=== PATIENT | male | born 1930 | race Caucasian/White ===

== ENCOUNTER 2017-05-11 10:07 | Inpatient (IN) | payer MEDICARE ==
[2017-05-11] MEDS ORDERED: DUONEB 0.5-3 MG/3 ml Neb IH ONE ×2 (10:57)
[2017-05-11] MEDS ORDERED: Sodium Chloride 0.9% 1000 ML 1,000 ML IV SCH (11:00)
[2017-05-11 11:06] LABS: Eosinophil % 0.1 % (0.00-5.0); Mean Cell Volume 91.1 fl (78-100); Mean Corpuscular Hemoglobin 28.8 pg (26-32); Mean Platelet Volume 13.3 fl (6-9.5); Monocytes % 14.1 % (0.0-12.0); Platelet Count 88 K/mm3 (150-450); Red Blood Count 3.92 M/mm3 (4.1-5.6)
--- NOTE | 2017-05-11 11:18 | XRAY ---
Indication: Cough and weakness. Comparison: February 29, 2016. Portable chest underinflated today accentuating the cardiopulmonary structures with stable diffuse bilateral fibrosis/scarring. Query left base infiltrate versus atelectasis. Heart is not enlarged. Bony thorax intact again with mild osteopenia and degenerative changes. Impression: 1. Underinflated chest again with pulmonary fibrosis/scarring. 2. Query new left base infiltrate/atelectasis. Correlate clinically.
[2017-05-11 11:19] LABS: ALBUMIN 3.4 g/dL (3.4-5.0); ANION GAP 17.6 MEQ/L (5-15); BILIRUBIN,TOTAL 1.2 mg/dL (0.2-1.0); Carbon Dioxide 22.3 mEq/L (21-32); MAGNESIUM 1.9 mg/dL (1.8-2.4); Potassium 4.6 mEq/L (3.5-5.1); Total Protein 7.9 gm/dL (6.4-8.2); White Blood Count 63.4 K/mm3 (4.0-10.5)
[2017-05-11] MEDS ORDERED: ROCEPHIN 1 Gm-D5w 50 ml Bag** 1 G/50 ML IVPB IV ONE ×2 (11:25→11:32)
[2017-05-11] MEDS ORDERED: Zithromax 500 MG/ 250 ML NaCl Premix 500 MG/250 ML IVPB IV STA (11:26)
--- NOTE | 2017-05-11 11:34 | ERPHSYRPT ---
- History of Present Illness Time Seen by Provider: 05/11/17 10:30 Source: patient, family Exam Limitations: clinical condition Patient Subjective Stated Complaint: pt here for weakness for 2 weeks getting worse, with cough,productive green, pain to middle left side of back no injury Triage Nursing Assessment: pt alert, arrived per wc, resp easy, chest clear, congested cough, no edema. no fever Physician History: PATIENT WITH A HISTORY OF CHRONIC LYMPHOCYTIC LEUKEMIA, CORONARY ARTERY DISEASE , COMPLAINS OF PRODUCTIVE COUGH GREEN SPUTUM ASSOCIATED WITH GENERALIZED WEAKNESS, AND EXERTIONAL DYSPNEA. DENIES FEVER OR CHILLS. Timing/Duration: week(s) Cough Quality/Degree: productive cough, sputum Possible Cause: occasional episodes Modifying Factors: Improves With: activity, coughing Associated Symptoms: shortness of breath International travel in last 2 weeks: No Allergies/Adverse Reactions: Penicillins Allergy (Verified 05/11/17 10:25) Home Medications: Aspirin 81 mg PO DAILY 02/29/16 [History] Polyethylene Glycol 3350 17 gm PO DAILY 02/29/16 [History] Sennosides/Docusate Sodium [Docusate Sodium-Senna Tablet] 1 each PO BID [History] Tamsulosin HCl 0.4 mg PO DAILY 02/29/16 [History] Hx Tetanus, Diphtheria Vaccination/Date Given: No Hx Influenza Vaccination/Date Given: Yes Hx Pneumococcal Vaccination/Date Given: No Immunizations Up to Date: Yes - Review of Systems Constitutional: Weakness, No Fever, No Chills Eyes: No Symptoms Ears, Nose, & Throat: No Symptoms Respiratory: Cough, Dyspnea on Exertion (MCKEE), No Dyspnea Cardiac: No Symptoms, No Chest Pain, No Edema, No Syncope Abdominal/Gastrointestinal: No Symptoms, No Abdominal Pain, No Nausea, No Vomiting, No Diarrhea Genitourinary Symptoms: No Dysuria Musculoskeletal: No Symptoms, No Back Pain, No Neck Pain Skin: No Symptoms, No Rash Neurological: No Dizziness, No Focal Weakness, No Sensory Changes Psychological: No Symptoms Endocrine: No Symptoms All Other Systems: Reviewed and Negative - Past Medical History Pertinent Past Medical History: Yes Neurological History: No Pertinent History ENT History: No Pertinent History Cardiac History: Coronary Artery Disease Respiratory History: No Pertinent History Endocrine Medical History: No Pertinent History Musculoskeletal History: No Pertinent History GI Medical History: No Pertinent History History: No Pertinent History Psycho-Social History: No Pertinent History Male Reproductive Disorders: Prostate Problems Other Medical History: CLL - Past Surgical History Past Surgical History: Yes Neuro Surgical History: No Pertinent History Cardiac: Cardiac Catheterization, Cardiac Stent Respiratory: No Pertinent History Gastrointestinal: No Pertinent History, Hernia Repair, Other Genitourinary: No Pertinent History Musculoskeletal: No Pertinent History Male Surgical History: No Pertinent History Other Surgical History: abdominal aneurysm repair - Social History Smoking Status: Former smoker Exposure to second hand smoke: Yes Drug Use: none Patient Lives Alone: No - Nursing Vital Signs Nursing Vital Signs: Initial Vital Signs Temperature Source Oral Pulse Rate 83 Respiratory Rate 16 Blood Pressure [] 106/39 Pain Intensity 0 - Physical Exam General Appearance: no apparent distress, alert Eye Exam: PERRL/EOMI, eyes nml inspection Ears, Nose, Throat Exam: normal ENT inspection, TMs normal, pharynx normal, moist mucous membranes Neck Exam: normal inspection, non-tender, supple, full range of motion Respiratory Exam: diminished breath sounds, other (THERE IS LEFT LOWER HEMITHORAX INSPIRATORY CRACKLES, NO WHEEZES), No respiratory distress Cardiovascular Exam: regular rate/rhythm, normal heart sounds Gastrointestinal/Abdomen Exam: soft, normal bowel sounds, No tenderness Back Exam: normal inspection, No CVA tenderness, No vertebral tenderness Extremity Exam: normal inspection, normal range of motion Neurologic Exam: alert, oriented x 3, cooperative, normal mood/affect, sensation nml, No motor deficits Skin Exam: normal color, warm, dry, No rash Lymphatic Exam: No adenopathy SpO2 Interpretation: normal SpO2: 96 Oxygen Delivery: Nasal Cannula - Course EKG Interpreted by Me: RATE, Sinus Rhythm, Non-specific ST Changes (OCCASIONAL PAC'S) - Radiology Exams Chest X-ray Interpretation: Discussed w/ radiologist (THERE IS DIFFUSE PULMONARY FIBROSIS/SCARRING, NEW LEFT BASE INFILTRATE/ATELECTASIS) Ordered Tests: Active Orders 24 hr Category Date Time Status Up With Assistance ROUTINE Activity 05/11/17 11:57 Ordered Admission/Status Order ROUTINE Care 05/11/17 11:57 Ordered Shop Repairer STAT Care 05/11/17 10:49 Active Code Status Order ROUTINE Care 05/11/17 11:57 Ordered EKG-ER Only STAT Care 05/11/17 10:49 Active IV Care Q6H Care 05/11/17 11:57 Ordered IV Insertion STAT Care 05/11/17 10:49 Active Intake and Output Q12H Care 05/11/17 11:57 Ordered Oxygen-ED Only NASAL CANNULA 2 lpm Care 05/11/17 10:49 Active Elli Salamanca ROUTINE Care 05/11/17 11:57 Ordered Telemetry ROUTINE Care 05/11/17 11:57 Ordered Vital Signs Q4H Care 05/11/17 11:57 Ordered Weight,Daily 0600 Care 05/11/17 11:57 Ordered Regular Diet Diet 05/11/17 Dinner Ordered CHEST 1 VIEW (PORTABLE) Stat Exams 05/11/17 10:49 Completed BLOOD CULTURE Stat Lab 05/11/17 11:05 Received CBC W DIFF Stat Lab 05/11/17 10:40 Completed CMP Stat Lab 05/11/17 10:40 Completed MAGNESIUM Stat Lab 05/11/17 10:40 Completed Manual Differential NC Stat Lab 05/11/17 10:40 Completed TROPONIN Q3H Lab 05/11/17 11:00 Completed TROPONIN Q3H Lab 05/11/17 14:00 Ordered TROPONIN Q3H Lab 05/11/17 17:00 Ordered TROPONIN Q3H Lab 05/11/17 20:00 Ordered TROPONIN Q3H Lab 05/11/17 23:00 Ordered UA W/RFX UR CULTURE Stat Lab 05/11/17 10:49 Ordered Oxygen NASAL CANNULA 2 lpm RT 05/11/17 11:57 Ordered Pulse Oximetry CONTINUOUS RT 05/11/17 11:59 Ordered Respiratory Nebulizer STAT RT 05/11/17 10:58 Completed Transfer Order Routine Transfer 05/11/17 11:57 Ordered Medication Summary Generic Name Dose Route Start Last Admin Trade Name Freq PRN Reason Stop Dose Admin Sodium Chloride 1,000 mls @ 50 mls/hr 05/11/17 11:00 05/11/17 11:12 Sodium Chloride 0.9% 1000 Ml IV 06/10/17 10:59 100 mls/hr .Q20H [place] Administration Azithromycin 500 mg in 250 mls @ 250 mls/hr 05/11/17 11:26 Zithromax 500 Mg/ 250 Ml Nacl Premix IV 05/11/17 12:25 STAT STA Discontinued Medications Generic Name Dose Route Start Last Admin Trade Name Freq PRN Reason Stop Dose Admin Albuterol/Ipratropium 3 ml 05/11/17 10:57 05/11/17 10:59 Duoneb 0.5-3 Mg/3 Ml Neb IH 07/13/17 10:58 3 ml STAT ONE Administration Albuterol/Ipratropium Confirm 05/11/17 10:57 Duoneb 0.5-3 Mg/3 Ml Neb Administered 05/11/17 10:58 Dose 3 ml IH .STK-MED ONE Ceftriaxone Sodium/Dextrose 1 g in 50 mls @ 100 mls/hr 05/11/17 11:25 11:34 Rocephin 1 Gm-D5w 50 Ml Bag IV 05/11/17 11:54 100 mls/hr STAT ONE Administration Ceftriaxone Sodium/Dextrose Confirm 05/11/17 11:32 Rocephin 1 Gm-D5w 50 Ml Bag Administered 05/11/17 11:33 Dose 1 g in 50 mls @ ud IV .STK-MED ONE Lab/Rad Data: Laboratory Result Diagrams 05/11/17 10:40 05/11/17 10:40 Laboratory Results 05/11/17 05/11/17 05/11/17 Range/Units 11:00 10:40 10:40 WBC 63.4 H* (4.0-10.5) K/mm3 RBC 3.92 L (4.1-5.6) M/mm3 Hgb 11.3 L (12.5-18.0) gm/dl Hct 35.7 L (42-50) % MCV 91.1 (78-100) fl MCH 28.8 (26-32) pg MCHC 31.7 L (32-36) g/dl RDW 15.0 H (11.5-14.0) % Plt Count 88 L (150-450) K/mm3 MPV 13.3 H (6-9.5) fl Lymphocytes % 62.0 H (24.0-44.0) % Monocytes % 14.1 H (0.0-12.0) % Eosinophils % 0.1 (0.00-5.0) % Segmented Neutrophils 19 L (36.-66.) % Band Neutrophils 1 (0.0-2.0) % Lymphocytes (Manual) 71 H (24-44) % Monocytes (Manual) 8 (0.0-12.0) % Eosinophils (Manual) 1 (0.00-3.0) % Differential Comment ABNORMAL Platelet Estimate DECREASED (NORMAL) Poikilocytosis 1+ Anisocytosis 1+ Sodium 143 (136-145) mEq/L Potassium 4.6 (3.5-5.1) mEq/L Chloride 108 H (98-107) mEq/L Carbon Dioxide 22.3 (21-32) mEq/L Anion Gap 17.6 H (5-15) MEQ/L BUN 49 H (9-20) mg/dL Creatinine 2.64 H (0.55-1.30) mg/dl Estimated GFR 24 ML/MIN Glucose 114 H (70-110) MG/DL Calcium 9.4 (8.5-10.1) mg/dL Magnesium 1.9 (1.8-2.4) mg/dL Total Bilirubin 1.20 H (0.2-1.0) mg/dL AST 16 (15-37) U/L ALT 14 (12-78) U/L Alkaline Phosphatase 63 (46-116) U/L Troponin I < 0.017 (0.000-0.056) ng/ml Serum Total Protein 7.9 (6.4-8.2) gm/dL Albumin 3.4 (3.4-5.0) g/dL - Progress Progress Note: 05/11/17 11:32 PATIENT GIVEN DUO NEB AEROSOL TX, IV NORMAL SALINE 100ML/HR, AFTER 2 SETS OF BLOOD CULTURES, ROCEPHIN 1GM, ZITHROMAX 500MG IVPB Blood Culture(s) Obtained: Yes Antibiotics given: Yes (ROCEPHIN 1GM, ROCEPHIN 500MG IVPB) Discussed with Dr.: Shen (DISCUSSED WITH DR SHEN AT 1155 FOR ADMISSION) - Departure Time of Disposition: 12:03 Departure Disposition: In-patient Admission Clinical Impression: PNEUMONIA, Generalized weakness Condition: Stable Critical Care Time: No
[2017-05-11 12:00] LABS: BAND 1 % (0.0-2.0); Eosinophil 1 % (0.00-3.0); Total Cells Counted 100
[2017-05-11] MEDS ORDERED: TYLENOL 325 MG PO PRN (12:00)
[2017-05-11 12:01] LABS: ANISOCYTOSIS 1+; Platelet Estimate DECREASED (NORMAL); Poikilocytosis 1+
[2017-05-11] MEDS ORDERED: Xopenex 1.25 MG/0.5 ML UD NEBULE IH PRN (12:01)
[2017-05-11] MEDS ORDERED: Zithromax 500 MG/ 250 ML NaCl Premix 500 MG/250 ML IVPB IV ONE (12:06)
[2017-05-11] MEDS: DUONEB 0.5-3 MG/3 ml Neb IH SCH ×3 (14:21→23:45)
[2017-05-11 16:38] LABS: ADD URINE CULTURE? YES (NO); Bilirubin NEGATIVE (NEGATIVE); Blood 50 Ery/ul (0-5); COMPLETE URINE MICROSCOPIC? YES; Collection Type VOID; Glucose NEGATIVE (NEGATIVE); Leukocyte Esterase TRACE (NEGATIVE)
[2017-05-11 16:47] LABS: Bacteria FEW /HPF (NEGATIVE); Mucus SLIGHT /HPF (NEGATIVE)
[2017-05-12] MEDS: Zofran 4 MG/2 ML VIAL IV PRN ×2 (02:07→06:13)
[2017-05-12] MEDS ORDERED: TORAdol 30 mg Injection IV ONE (02:10)
[2017-05-12] MEDS: Sodium Chloride 0.9% 1000 ML 1,000 ML IV SCH ×3 (02:14→16:35)
[2017-05-12] MEDS: DUONEB 0.5-3 MG/3 ml Neb IH SCH ×3 (07:00→11:37)
[2017-05-12] MEDS ORDERED: MAALOX ES 30 ML UNIT DOSE PO PRN (07:14)
[2017-05-12 07:40] LABS: Mean Cell Volume 90.6 fl (78-100); Platelet Count 80 K/mm3 (150-450); Red Blood Count 3.29 M/mm3 (4.1-5.6); Red Cell Distribution Width 14.9 % (11.5-14.0)
--- NOTE | 2017-05-12 07:43 | HP ---
CHIEF COMPLAINT: Cough and shortness of breath. HISTORY OF PRESENT ILLNESS: The patient is an 87 year-old white male patient who reports that over the past three days she has been getting worse with productive cough and having no appetite and not taking much in. The patient has known history of chronic lymphocytic leukemia (CLL). He had been seeing Dr. Frederick after Dr. Flood had retired from the [facility] but he has not seen him in the last year or better. He was also seeing Dr. Dakota Trotter who retired last year and has not seen a physician for primary care since that time either. PAST MEDICAL/SURGICAL HISTORY: Otherwise significant for coronary artery disease with stent placement. He had hernia repairs performed. He is a nonsmoker, nondrinker, living at home with his . HOME MEDICATIONS: Docusate sodium, Tamsulosin 0.4 mg. He is on no medications otherwise. ALLERGIES: PENICILLIN. PHYSICAL EXAMINATION: Revealed an elderly white male patient in no obvious distress presently. His vital signs on admission showed a pulse 83, respiratory rate 16, blood pressure 106/39. O2 saturation 96% on room air. HEENT: Normocephalic, atraumatic. Pupils equal round reactive to light. Extraocular movements intact. Oropharynx is pink and moist. NECK: Supple without lymphadenopathy, thyromegaly or JVD. CHEST: Faint rales. HEART: Irregular rate and rhythm but the rate is controlled. ABDOMEN: Soft, nontender, nondistended without hepatosplenomegaly or masses. EXTREMITIES: Without clubbing, cyanosis or edema. NEUROLOGIC: The patient is alert and oriented x3 with no focal deficits noted. LAB DATA AND TESTS: Revealed troponin 0.021. Nonfasting sugar 114, BUN 49, creatinine 2.64. His electrolytes were normal. Bilirubin 1.20. Liver enzymes were normal. The second troponin was less than 0.017. His white blood cell count 63,400, hemoglobin 11.3, PLT count 88,000. His chest x-ray showed under inflated chest with pulmonary fibrosis and scarring possible new left basilar atelectasis or infiltrate is noted. He did have tracing on EKG telemetry that showed what appears to be an underlying sinus rhythm with atrial premature contractions. He has left axis deviation on EKG with somewhat poor progression of the R-wave across the precordial lead. ASSESSMENT: A patient with exacerbation of chronic obstructive pulmonary disease and possible pneumonia. He has been admitted for IV antibiotics of Rocephin and Zithromax. He is receiving gentle hydration for his renal insufficiency. His CLL will be addressed as an outpatient with Dr. Frederick.
[2017-05-12 07:44] LABS: Mean Corpuscular Hemoglobin 28.5 pg (26-32); White Blood Count 44.9 K/mm3 (4.0-10.5)
[2017-05-12] MEDS: PROTONIX 40 MG IV IV SCH (07:57)
[2017-05-12 08:02] LABS: ATYPICAL LYMPHS 1 %; BAND 1 % (0.0-2.0); Total Cells Counted 100
[2017-05-12 08:03] LABS: Platelet Estimate DECREASED (NORMAL)
[2017-05-12 08:06] LABS: ALBUMIN 2.9 g/dL (3.4-5.0); ANION GAP 16.5 MEQ/L (5-15); BILIRUBIN,TOTAL 1.6 mg/dL (0.2-1.0); Carbon Dioxide 21.4 mEq/L (21-32); Potassium 3.9 mEq/L (3.5-5.1); Total Protein 6.2 gm/dL (6.4-8.2)
[2017-05-12 08:16] LABS: ANISOCYTOSIS RARE; Poikilocytosis RARE
[2017-05-12] MEDS ORDERED: PARACASEI B LACTIS PO SCH (10:00)
[2017-05-12] MEDS ORDERED: ACIDOPH PO SCH (10:00)
[2017-05-12] MEDS: ROCEPHIN 1 Gm-D5w 50 ml Bag** 1 G/50 ML IVPB IV SCH (10:01)
[2017-05-12] MEDS: Senokot-S Tablet PO SCH (10:01)
[2017-05-12] MEDS: Acidophilus TABLET PO SCH (10:01)
[2017-05-12] MEDS: Flomax 0.4 MG PO SCH (10:01)
[2017-05-12] MEDS ORDERED: DUONEB 0.5-3 MG/3 ml Neb IH PRN (11:41)
[2017-05-12] MEDS: Zithromax 500 MG/ 250 ML NaCl Premix 500 MG/250 ML IVPB IV SCH (12:24)
[2017-05-13] MEDS: Sodium Chloride 0.9% 1000 ML 1,000 ML IV SCH ×3 (00:46→19:24)
[2017-05-13 06:05] LABS: Mean Platelet Volume 12.9 fl (6-9.5); Platelet Count 82 K/mm3 (150-450); Red Cell Distribution Width 14.9 % (11.5-14.0)
[2017-05-13 06:45] LABS: ALBUMIN 2.6 g/dL (3.4-5.0); ANION GAP 14.4 MEQ/L (5-15); BILIRUBIN,TOTAL 0.6 mg/dL (0.2-1.0); Carbon Dioxide 20.6 mEq/L (21-32); Potassium 4.1 mEq/L (3.5-5.1)
[2017-05-13 08:52] LABS: ANISOCYTOSIS 1+; BAND 2 % (0.0-2.0); Platelet Estimate DECREASED (NORMAL); Poikilocytosis 1+; Total Cells Counted 100
--- NOTE | 2017-05-13 09:26 | PCM.NOTE ---
Date and Time: 05/13/17923 Subjective Assessment: patient still not breathing well, has significant cough and feels poorly still. Objective Exam General Appearance: no apparent distress, alert Respiratory Exam: crackles/rales, rhonchi Cardiovascular Exam: regular rate/rhythm, normal heart sounds Gastrointestinal/Abdomen Exam: soft, No tenderness, No mass Extremity Exam: normal inspection, normal range of motion OBJECTIVE DATA Vital Signs: Vital Signs - 24 hr Temp Pulse Resp BP Pulse Ox 05/13/17 08:00 97.9 F 93 H 18 115/57 90 L 05/13/17 07:33 77 18 96 05/13/17 04:00 98.0 F 93 H 19 110/56 92 L 05/13/17 00:00 97.9 F 95 H 18 84/51 93 L 05/12/17 19:53 97.8 F 85 19 101/58 95 05/12/17 18:29 91 H 18 96 05/12/17 16:00 97.9 F 84 17 80/44 93 L 05/12/17 12:00 98.2 F 84 17 112/59 92 L 05/12/17 11:00 85 18 93 L Pain Assessment - Last Documented Pain Intensity 0 Pain Scale Used 0-10 Pain Scale Intake and Output: Intake & Output 05/10/17 05/11/17 05/12/17 05/13/17 11:59 11:59 11:59 11:59 Intake Total 1857 3137 Output Total 275 Balance 1857 3422 Weight 78.88 kg 78.88 kg Lab Results: Lab Results-Last 24 Hours 05/13/17 05/13/17 Range/Units 05:55 05:55 WBC 43.0 H* (4.0-10.5) K/mm3 RBC 3.00 L (4.1-5.6) M/mm3 Hgb 8.7 L (12.5-18.0) gm/dl Hct 27.6 L (42-50) % MCV 92.0 (78-100) fl MCH 29.0 (26-32) pg MCHC 31.5 L (32-36) g/dl RDW 14.9 H (11.5-14.0) % Plt Count 82 L (150-450) K/mm3 MPV 12.9 H (6-9.5) fl Segmented Neutrophils 28 L (36.-66.) % Band Neutrophils 2 (0.0-2.0) % Lymphocytes (Manual) 65 H (24-44) % Monocytes (Manual) 5 (0.0-12.0) % Platelet Estimate DECREASED (NORMAL) Poikilocytosis 1+ Anisocytosis 1+ Sodium 141 (136-145) mEq/L Potassium 4.1 (3.5-5.1) mEq/L Chloride 110 H (98-107) mEq/L Carbon Dioxide 20.6 L (21-32) mEq/L Anion Gap 14.4 (5-15) MEQ/L BUN 49 H (9-20) mg/dL Creatinine 2.52 H (0.55-1.30) mg/dl Estimated GFR 26 ML/MIN Glucose 96 (70-110) MG/DL Calcium 8.5 (8.5-10.1) mg/dL Total Bilirubin 0.60 (0.2-1.0) mg/dL AST 61 H (15-37) U/L ALT 55 (12-78) U/L Alkaline Phosphatase 108 (46-116) U/L Serum Total Protein 6.0 L (6.4-8.2) gm/dL Albumin 2.6 L (3.4-5.0) g/dL Assessment/Plan (1) Pneumonia Current Visit: Yes Status: Acute Assessment & Plan: continue rocephin and zithromax, continue nebs Code(s): J18.9 - PNEUMONIA, UNSPECIFIED ORGANISM (2) CLL (chronic lymphocytic leukemia) Current Visit: Yes Status: Acute Assessment & Plan: will f/u as outpatient after discharge per Dr Shen's documentation Code(s): C91.10 - CHRONIC LYMPHOCYTIC LEUK OF B-CELL TYPE NOT ACHIEVE REMIS (3) Renal insufficiency Current Visit: No Status: Acute (4) Weakness generalized Current Visit: No Status: Acute Code(s): R53.1 - WEAKNESS
[2017-05-13] MEDS: ROCEPHIN 1 Gm-D5w 50 ml Bag** 1 G/50 ML IVPB IV SCH (09:37)
[2017-05-13] MEDS: Acidophilus TABLET PO SCH (09:38)
[2017-05-13] MEDS: Flomax 0.4 MG PO SCH (09:38)
[2017-05-13] MEDS: PROTONIX 40 MG IV IV SCH (09:39)
[2017-05-13] MEDS: Senokot-S Tablet PO SCH (09:49)
[2017-05-13] MEDS: Zithromax 500 MG/ 250 ML NaCl Premix 500 MG/250 ML IVPB IV SCH (11:07)
[2017-05-14] MEDS: Sodium Chloride 0.9% 1000 ML 1,000 ML IV SCH ×3 (04:24→22:48)
[2017-05-14 06:47] LABS: Mean Cell Volume 92.6 fl (78-100); Mean Corpuscular Hemoglobin 28.5 pg (26-32); Mean Platelet Volume 12.7 fl (6-9.5); Platelet Count 84 K/mm3 (150-450); Red Blood Count 2.98 M/mm3 (4.1-5.6); Red Cell Distribution Width 15.1 % (11.5-14.0)
[2017-05-14 07:04] LABS: White Blood Count 45.7 K/mm3 (4.0-10.5)
[2017-05-14 07:46] LABS: ALBUMIN 2.5 g/dL (3.4-5.0); ANION GAP 14.6 MEQ/L (5-15); BILIRUBIN,TOTAL 0.5 mg/dL (0.2-1.0); Carbon Dioxide 19.7 mEq/L (21-32); Total Protein 5.8 gm/dL (6.4-8.2)
--- NOTE | 2017-05-14 09:07 | PCM.NOTE ---
Date and Time: 05/14/17904 Subjective Assessment: patient still having significant productive cough. no pain in the chest Objective Exam General Appearance: no apparent distress, alert Respiratory Exam: crackles/rales Cardiovascular Exam: regular rate/rhythm, normal heart sounds Gastrointestinal/Abdomen Exam: soft, No tenderness, No mass Extremity Exam: normal inspection OBJECTIVE DATA Vital Signs: Vital Signs - 24 hr Temp Pulse Resp BP Pulse Ox 05/14/17 08:00 97.5 F 108 H 20 131/73 91 L 05/14/17 07:26 100 H 18 95 05/14/17 04:00 97.9 F 107 H 19 117/66 92 L 05/14/17 00:00 98.3 F 114 H 16 105/68 92 L 05/13/17 20:00 98.3 F 86 19 107/56 94 L 05/13/17 19:47 98 H 20 90 L 05/13/17 16:00 98.0 F 98 H 18 109/60 92 L 05/13/17 12:00 98.5 F 93 H 18 101/58 94 L Pain Assessment - Last Documented Pain Intensity 3 Pain Scale Used 0-10 Pain Scale Intake and Output: Intake & Output 05/11/17 05/12/17 05/13/17 05/14/17 11:59 11:59 11:59 11:59 Intake Total 7177 3137 3736 Output Total 964 675 Balance 6473 7848 3061 Weight 78.88 kg 87.906 kg Lab Results: Lab Results-Last 24 Hours 05/14/17 05/14/17 Range/Units 05:20 05:20 WBC 45.7 H* (4.0-10.5) K/mm3 RBC 2.98 L (4.1-5.6) M/mm3 Hgb 8.5 L (12.5-18.0) gm/dl Hct 27.6 L (42-50) % MCV 92.6 (78-100) fl MCH 28.5 (26-32) pg MCHC 30.8 L (32-36) g/dl RDW 15.1 H (11.5-14.0) % Plt Count 84 L (150-450) K/mm3 MPV 12.7 H (6-9.5) fl Sodium 142 (136-145) mEq/L Potassium 4.0 (3.5-5.1) mEq/L Chloride 112 H (98-107) mEq/L Carbon Dioxide 19.7 L (21-32) mEq/L Anion Gap 14.6 (5-15) MEQ/L BUN 35 H (9-20) mg/dL Creatinine 1.95 H (0.55-1.30) mg/dl Estimated GFR 35 ML/MIN Glucose 90 (70-110) MG/DL Calcium 8.2 L (8.5-10.1) mg/dL Total Bilirubin 0.50 (0.2-1.0) mg/dL AST 27 (15-37) U/L ALT 35 (12-78) U/L Alkaline Phosphatase 85 (46-116) U/L Serum Total Protein 5.8 L (6.4-8.2) gm/dL Albumin 2.5 L (3.4-5.0) g/dL Assessment/Plan (1) Pneumonia Current Visit: Yes Status: Acute Assessment & Plan: continue rocephin and zithromax, nebs Code(s): J18.9 - PNEUMONIA, UNSPECIFIED ORGANISM (2) CLL (chronic lymphocytic leukemia) Current Visit: Yes Status: Acute Code(s): C91.10 - CHRONIC LYMPHOCYTIC LEUK OF B-CELL TYPE NOT ACHIEVE REMIS (3) Renal insufficiency Current Visit: No Status: Acute (4) Weakness generalized Current Visit: No Status: Acute Code(s): R53.1 - WEAKNESS
[2017-05-14] MEDS ORDERED: DULCOLAX 5 MG PO PRN (09:37)
[2017-05-14 09:56] LABS: Platelet Estimate DECREASED (NORMAL); Total Cells Counted 100
[2017-05-14 09:57] LABS: ANISOCYTOSIS 1+; Hypochromia 1+
[2017-05-14] MEDS: PROTONIX 40 MG IV IV SCH (10:08)
[2017-05-14] MEDS: Senokot-S Tablet PO SCH (10:08)
[2017-05-14] MEDS: Flomax 0.4 MG PO SCH (10:08)
[2017-05-14] MEDS: Acidophilus TABLET PO SCH (10:08)
[2017-05-14] MEDS: ROCEPHIN 1 Gm-D5w 50 ml Bag** 1 G/50 ML IVPB IV SCH (10:09)
[2017-05-14] MEDS: Zithromax 500 MG/ 250 ML NaCl Premix 500 MG/250 ML IVPB IV SCH (10:09)
[2017-05-15] MEDS: Sodium Chloride 0.9% 1000 ML 1,000 ML IV SCH (06:42)
[2017-05-15] MEDS ORDERED: Lasix 20 MG/2 ML IV ONE ×2 (07:57→15:00)
--- NOTE | 2017-05-15 08:54 | XRAY ---
Indication: Pneumonia. Comparison: May 11, 2017. PA/lateral chest better inflated with again diffuse bilateral fibrosis/scarring. Left base and right midlung infiltrate/atelectasis and tiny bibasilar effusions persists. Heart is not enlarged. No new cardiopulmonary abnormalities.
[2017-05-15] MEDS: PROTONIX 40 MG IV IV SCH (09:57)
[2017-05-15] MEDS: ROCEPHIN 1 Gm-D5w 50 ml Bag** 1 G/50 ML IVPB IV SCH (09:59)
[2017-05-15] MEDS: Flomax 0.4 MG PO SCH (09:59)
[2017-05-15] MEDS: Acidophilus TABLET PO SCH (09:59)
[2017-05-15] MEDS: Senokot-S Tablet PO SCH (09:59)
[2017-05-15] MEDS: Zithromax 500 MG/ 250 ML NaCl Premix 500 MG/250 ML IVPB IV SCH (10:50)
[2017-05-16 06:35] LABS: Mean Cell Volume 92.3 fl (78-100); Mean Platelet Volume 12.9 fl (6-9.5); Platelet Count 80 K/mm3 (150-450); Red Blood Count 3.13 M/mm3 (4.1-5.6); Red Cell Distribution Width 15.3 % (11.5-14.0)
[2017-05-16 06:42] LABS: ANION GAP 14.3 MEQ/L (5-15); Carbon Dioxide 23.8 mEq/L (21-32); Potassium 3.4 mEq/L (3.5-5.1)
[2017-05-16 06:44] LABS: White Blood Count 49.7 K/mm3 (4.0-10.5)
[2017-05-16] MEDS: PROTONIX 40 MG IV IV SCH (06:59)
[2017-05-16 07:16] LABS: BAND 2 % (0.0-2.0); Total Cells Counted 100
[2017-05-16 07:18] LABS: ANISOCYTOSIS 1+; Platelet Estimate DECREASED (NORMAL); Toxic Granulation 1+
--- NOTE | 2017-05-16 07:47 | PCM.DCORD ---
- Discharge Discharge Date: 05/16/17 Disposition: DC JOSÉ MIGUEL MONTE Prescriptions: New Cefdinir [Omnicef] 300 mg PO BID #10 capsule Continue Sennosides/Docusate Sodium [Docusate Sodium-Senna Tablet] 1 each PO DAILY Tamsulosin HCl 0.4 mg PO DAILY L.acidoph & Paracasei,B.lactis [Probiotic] 1 each PO DAILY Follow up with: ALIE BRADY [ACTIVE STAFF] -
[2017-05-16 08:10] VITALS: BP 137/91; PULSE 100; O2SAT 93
[2017-05-16] MEDS: Acidophilus TABLET PO SCH (08:40)
[2017-05-16] MEDS: Flomax 0.4 MG PO SCH (08:40)
[2017-05-16] MEDS: Senokot-S Tablet PO SCH (08:40)
[2017-05-16] MEDS: ROCEPHIN 1 Gm-D5w 50 ml Bag** 1 G/50 ML IVPB IV SCH (08:40)
[2017-05-16] MEDS: Zithromax 500 MG/ 250 ML NaCl Premix 500 MG/250 ML IVPB IV SCH (08:41)
[2017-05-16] MEDS ORDERED: Lasix 20 MG/2 ML IV ONE ×2 (14:22→15:00)
--- NOTE | 2017-05-17 09:17 | DS ---
DISCHARGE DIAGNOSES: 1) PNEUMONIA. 2) CHRONIC LYMPHOCYTIC LEUKEMIA (CLL). 3) CORONARY ARTERY DISEASE. 4) CHRONIC RENAL INSUFFICIENCY. 5) CONGESTIVE HEART FAILURE. HISTORY: The patient is an 87 year-old white male who presented himself to the emergency room due to increasing shortness of breath. He was found to have pneumonia on the chest x-ray. He is also known to have chronic lymphocytic leukemia. His white blood cell count was over 60,000 when he presented to the emergency room which was felt to be due to his leukemia but also due to the infection of the pneumonia. The patient apparently had not seen his oncologist in the last year. He was seeing Dr. Flood but has since been changed over to Dr. Frederick on [facility] but he has only seen him one time. HOSPITAL COURSE: The patient was admitted to the [facility] and began on Rocephin and Zithromax. He was somewhat hypotensive on Monday. We bolused him IV fluids and started him on IV 125 cc/hour. The patient does not take oxygen at home but was noted to be somewhat hypoxic during his stay. On Monday, we checked his pro-BNP level and found it to be over 25,000. We discontinued to the IV fluids and gave him Lasix. By the next morning he was feeling better. His labs on the day of discharge showed a glucose of 85, BUN 23, creatinine was down to 1.66. His electrolytes were normal. His white blood cell count was 49,700. His hemoglobin was 9.1, PLT count 80,000. His blood cultures were no growth. His chest x-ray was under inflated with pulmonary fibrosis and scarring with possible new left base atelectasis versus infiltrate. Due to the patient's weakness and being flat on his back for the past five days the patient was felt the need to have rehab for strengthening. He had been assessed by [facility] and will be sent there for rehab. He will be discharged on Omnicef 300 mg twice a day for additional five days to finish out his treatment for pneumonia. We will make him an appointment to see Dr. Frederick as an outpatient for his CLL. He will have a follow up arranged in my office as well after discharge from the [facility] to return home. He will continue his usual home medications otherwise as listed in the history and physical previously.
== END 2017-05-16 11:15 | DRG 194 ==
LOC: ED 10:07 → MED SURG 13:26 → UNDOADMIN 13:26
PROVIDERS: ADMIT Family Medicine; ATTEND Family Medicine
DX: J18.9 Pneumonia, unspecified organism (principal); C91.10 Chronic lymphocytic leukemia of B-cell type not having achieved remission; J44.1 Chronic obstructive pulmonary disease with (acute) exacerbation; I25.10 Atherosclerotic heart disease of native coronary artery without angina pectoris; N18.9 Chronic kidney disease, unspecified; I50.9 Heart failure, unspecified; R53.1 Weakness; Z98.61 Coronary angioplasty status; Z79.899 Other long term (current) drug therapy
CPT/HCPCS: 36000; 36415; 71010; 71020; 80048; 80053; 81000; 83735; 83880; 84484; 85025; 87040; 87086; 87631; 93005; 93041; 94640; 94760; 96360; 96365; 96367; 99285; J0456; J0696; J1885; J1940; J2405; A9270-GY

== ENCOUNTER 2017-05-31 08:18 | Emergency (ER) | payer MEDICARE ==
[2017-05-31 08:26] VITALS: O2SAT 96
[2017-05-31] MEDS ORDERED: Zofran 4 MG/2 ML VIAL IV ONE (08:43)
[2017-05-31] MEDS ORDERED: Sodium Chloride 0.9% 1000 ML 1,000 ML IV SCH (08:45)
[2017-05-31] MEDS ORDERED: Zofran 4 MG/2 ML VIAL ONE (08:51)
[2017-05-31] MEDS ORDERED: Sodium Chloride 0.9% 1000 ML 1,000 ML ONE (08:51)
[2017-05-31 08:53] LABS: Mean Cell Volume 93.9 fl (78-100); Mean Corpuscular Hemoglobin 28.6 pg (26-32); Mean Platelet Volume 13.2 fl (6-9.5); Platelet Count 58 K/mm3 (150-450); Red Blood Count 3.46 M/mm3 (4.1-5.6); Red Cell Distribution Width 15.5 % (11.5-14.0)
[2017-05-31 08:54] LABS: INR 1.33 (0.8-3.0); PROTIME 15.1 SECONDS (8.83-12.87)
--- NOTE | 2017-05-31 08:55 | ERPHSYRPT ---
- History of Present Illness Time Seen by Provider: 05/31/17 08:40 Historian: patient Exam Limitations: clinical condition Patient Subjective Stated Complaint: ABD PAIN SINCE LAST NIGHT Triage Nursing Assessment: STATES STARTED WITH LT MIDLINE ABD PAIN SINCE LAST NIGHT. VOMITED X1 LAST NIGHT. DENIES PROBLEMS WITH URINATION BUT SATES CONSTIPATED AND UNSURE OF LAST BM. SKIN PALE. BS PRESENT X4. ALERT/ORIENTED. WITH DAUGHTER (LIVES WITH). CAME HOME FROM [facility] LAST MONDAY WITH STAY FOR PNEUMONIA AND STRENGTH Physician History: PATIENT WITH A HISTORY OF CHRONIC LYMPHOCYTIC LEUKEMIA, PULMONARY FIBROSIS, AND REPAIR OF ABDOMINAL AORTIC ANEURYSM 02/17/2016 COMPLAINS OF LEFT LOWER ABDOMINAL PAINS SINCE LAST NIGHT ASSOCIATED WITH NAUSEA WITH EMESIS X 3 EPISODES. DENIES DIARRHEA, FEVER OR RADIATION OF PAIN TO HIS FLANK OR BACK. Timing/Duration: yesterday Activities at Onset: none Quality: sharpness, throbbing Abdominal Pain Onset Location: RLQ Pain Radiation: no radiation Severity of Pain-Max: moderate Severity of Pain-Current: moderate Modifying Factors: Improves With: vomiting Associated Symptoms: nausea Previous symptoms: same symptoms as today Allergies/Adverse Reactions: Penicillins Allergy (Verified 05/31/17 08:26) Home Medications: Sennosides/Docusate Sodium [Docusate Sodium-Senna Tablet] 1 each PO DAILY [History] Tamsulosin HCl 0.4 mg PO DAILY 02/29/16 [History] L.acidoph & Paracasei,B.lactis [Probiotic] 1 each PO DAILY 05/11/17 [History] Hx Tetanus, Diphtheria Vaccination/Date Given: Yes Hx Influenza Vaccination/Date Given: Yes Hx Pneumococcal Vaccination/Date Given: No Immunizations Up to Date: Yes - Review of Systems Constitutional: No Fever, No Chills Eyes: No Symptoms Ears, Nose, & Throat: No Symptoms Respiratory: No Symptoms, No Cough, No Dyspnea Cardiac: No Symptoms, No Chest Pain, No Edema, No Syncope Abdominal/Gastrointestinal: Abdominal Pain, Nausea, Vomiting, Appetite Changes, No Diarrhea Genitourinary Symptoms: No Symptoms, No Dysuria Musculoskeletal: No Symptoms, No Back Pain, No Neck Pain Skin: No Symptoms, No Rash Neurological: No Dizziness, No Focal Weakness, No Sensory Changes Psychological: No Symptoms Endocrine: No Symptoms All Other Systems: Reviewed and Negative - Past Medical History Pertinent Past Medical History: Yes Neurological History: No Pertinent History ENT History: No Pertinent History Cardiac History: Coronary Artery Disease Respiratory History: No Pertinent History Endocrine Medical History: No Pertinent History Musculoskeletal History: No Pertinent History GI Medical History: No Pertinent History History: No Pertinent History Psycho-Social History: No Pertinent History Male Reproductive Disorders: Prostate Problems Other Medical History: CLL - Past Surgical History Past Surgical History: Yes Neuro Surgical History: No Pertinent History Cardiac: Cardiac Catheterization, Cardiac Stent Respiratory: No Pertinent History Gastrointestinal: No Pertinent History, Hernia Repair, Other Genitourinary: No Pertinent History Musculoskeletal: No Pertinent History Male Surgical History: No Pertinent History Other Surgical History: abdominal aneurysm repair - Social History Smoking Status: Never smoker Exposure to second hand smoke: Yes Drug Use: none Patient Lives Alone: No - Nursing Vital Signs Nursing Vital Signs: Initial Vital Signs Temperature 97.3 F 05/31/17 08:18 Pulse Rate 61 05/31/17 08:18 Respiratory Rate 18 05/31/17 08:18 Blood Pressure 140/61 05/31/17 08:18 O2 Sat by Pulse Oximetry 96 05/31/17 08:18 Pain Scale Pain Intensity 2 - Physical Exam General Appearance: mild distress Eye Exam: PERRL/EOMI, eyes nml inspection Ears, Nose, Throat Exam: normal ENT inspection, pharynx normal, moist mucous membranes Neck Exam: normal inspection, non-tender, supple, full range of motion Respiratory Exam: normal breath sounds, lungs clear, No respiratory distress Cardiovascular Exam: regular rate/rhythm, normal heart sounds Gastrointestinal/Abdomen Exam: soft, normal bowel sounds, tenderness (LEFT LOWER QUAD TENDENESS, WITHOUT GUARDING), No mass Back Exam: normal inspection, normal range of motion, No CVA tenderness, No vertebral tenderness Extremity Exam: normal inspection, normal range of motion, pelvis stable Neurologic Exam: alert, oriented x 3, cooperative, normal mood/affect, nml cerebellar function, sensation nml, No motor deficits Skin Exam: normal color, warm, dry SpO2 Interpretation: normal SpO2: 96 Oxygen Delivery: Room Air - Radiology Exams Chest X-ray Interpretation: Discussed w/ radiologist (THERE IS DIFFUSE BILATERAL FIBROSIS/SCARRING GREATEST IN THE LEFT BASE) - CT Exams Abdomen/Pelvis CT Interpretation: Discussed w/radiologist (THERE IS A NEW 6MM LEF MID URETERCALCULUS AT THE LEVEL OF THE PELVIC INLET AND A 10MM CALCULUS AT THE L3- L4 INTERSPACE LEVEL, THE MORE PROXIMAL LEFT URETER IS NOW DISTENDED UP TO 14MM AND THERE IS MODERATE HYDRONEPHROSIS WITH PERINEPHRIC FLUID/STRANDING C/W HIGH GRADE OBSTRUCTIVE UROPATHY) Ordered Tests: Active Orders 24 hr Category Date Time Status Clean Catch Urine Specimen STAT Care 05/31/17 08:43 Active IV Insertion STAT Care 05/31/17 08:43 Active ABDOMEN AND PELVIS W/0 CONTRAS [CT] Stat Exams 05/31/17 08:44 Completed CHEST 1 VIEW (PORTABLE) Stat Exams 05/31/17 08:44 Completed AMYLASE Stat Lab 05/31/17 08:40 Completed BLOOD CULTURE Stat Lab 05/31/17 09:00 Received CBC W DIFF Stat Lab 05/31/17 08:40 Completed CMP Stat Lab 05/31/17 08:40 Completed CULTURE,URINE Stat Lab 05/31/17 11:30 Received LIPASE Stat Lab 05/31/17 08:40 Completed Manual Differential NC Stat Lab 05/31/17 08:40 Completed PROTIME WITH INR Stat Lab 05/31/17 08:40 Completed UA W/ MICROSCOPIC Stat Lab 05/31/17 11:30 Completed Medication Summary Discontinued Medications Generic Name Dose Route Start Last Admin Trade Name Freq PRN Reason Stop Dose Admin Sodium Chloride 1,000 mls @ 250 mls/hr 05/31/17 08:45 05/31/17 08:52 Sodium Chloride 0.9% 1000 Ml IV 06/30/17 08:44 250 mls/hr .Q4H [place] Administration Sodium Chloride Confirm 05/31/17 08:51 Sodium Chloride 0.9% 1000 Ml Administered 05/31/17 08:52 Dose 1,000 mls @ ud .ROUTE .STK-MED ONE Morphine Sulfate 4 mg 05/31/17 08:58 05/31/17 09:07 Morphine Sulfate 2 Mg Inj IV 05/31/17 08:59 4 mg STAT ONE Administration Morphine Sulfate Confirm 05/31/17 09:05 Morphine Sulfate 4 Mg Inj Administered 05/31/17 09:06 Dose 4 mg .ROUTE .STK-MED ONE Ondansetron HCl 4 mg 05/31/17 08:43 05/31/17 08:53 Zofran 4 Mg/2 Ml Vial IV 05/31/17 08:44 4 mg STAT ONE Administration Ondansetron HCl Confirm 05/31/17 08:51 Zofran 4 Mg/2 Ml Vial Administered 05/31/17 08:52 Dose 4 mg .ROUTE .STK-MED ONE Lab/Rad Data: Laboratory Result Diagrams 05/31/17 08:40 05/31/17 08:40 Laboratory Results 05/31/17 05/31/17 05/31/17 Range/Units 11:30 08:40 08:40 WBC (4.0-10.5) K/mm3 RBC (4.1-5.6) M/mm3 Hgb (12.5-18.0) gm/dl Hct (42-50) % MCV (78-100) fl MCH (26-32) pg MCHC (32-36) g/dl RDW (11.5-14.0) % Plt Count (150-450) K/mm3 MPV (6-9.5) fl Segmented Neutrophils (36.-66.) % Lymphocytes (Manual) (24-44) % Monocytes (Manual) (0.0-12.0) % Eosinophils (Manual) (0.00-3.0) % Nucleated RBCs Differential Comment Platelet Estimate (NORMAL) INR 1.33 (0.8-3.0) Sodium 141 (136-145) mEq/L Potassium 4.3 (3.5-5.1) mEq/L Chloride 107 (98-107) mEq/L Carbon Dioxide 26.1 (21-32) mEq/L Anion Gap 12.3 (5-15) MEQ/L BUN 24 H (9-20) mg/dL Creatinine 1.98 H (0.55-1.30) mg/dl Estimated GFR 34 ML/MIN Glucose 125 H (70-110) MG/DL Calcium 9.0 (8.5-10.1) mg/dL Total Bilirubin 0.60 (0.2-1.0) mg/dL AST 13 L (15-37) U/L ALT 10 L (12-78) U/L Alkaline Phosphatase 70 (46-116) U/L Serum Total Protein 7.5 (6.4-8.2) gm/dL Albumin 3.5 (3.4-5.0) g/dL Amylase 41 (25-115) U/L Lipase 59 L (73-393) U/L Ur Collection Type VOID Urine Color YELLOW (YELLOW) Urine Appearance CLEAR (CLEAR) Urine pH 7.0 (5-6) Ur Specific [place] 1.005 (1.005-1.025) Urine Protein 2+ (Negative) Urine Ketones NEGATIVE (NEGATIVE) Urine Blood 250 (0-5) Nicholas/ul Urine Nitrite NEGATIVE (NEGATIVE) Urine Bilirubin NEGATIVE (NEGATIVE) Urine Urobilinogen NORMAL (0-1) mg/dL Ur Leukocyte Esterase TRACE (NEGATIVE) Urine Microscopic RBC 25-50 (0-2) /HPF Urine Microscopic WBC 10-15 (0-5) /HPF Ur Epithelial Cells FEW (FEW) /HPF Urine Bacteria FEW (NEGATIVE) /HPF Urine Glucose NEGATIVE (NEGATIVE) mg/dL Specimen Received 05/31/17 1130 05/31/17 Range/Units 08:40 WBC 36.1 H* (4.0-10.5) K/mm3 RBC 3.46 L (4.1-5.6) M/mm3 Hgb 9.9 L (12.5-18.0) gm/dl Hct 32.5 L (42-50) % MCV 93.9 (78-100) fl MCH 28.6 (26-32) pg MCHC 30.5 L (32-36) g/dl RDW 15.5 H (11.5-14.0) % Plt Count 58 L (150-450) K/mm3 MPV 13.2 H (6-9.5) fl Segmented Neutrophils 19 L (36.-66.) % Lymphocytes (Manual) 73 H (24-44) % Monocytes (Manual) 7 (0.0-12.0) % Eosinophils (Manual) 1 (0.00-3.0) % Nucleated RBCs RESISTANCE WELDER Differential Comment NORMAL Platelet Estimate DECREASED (NORMAL) INR (0.8-3.0) Sodium (136-145) mEq/L Potassium (3.5-5.1) mEq/L Chloride (98-107) mEq/L Carbon Dioxide (21-32) mEq/L Anion Gap (5-15) MEQ/L BUN (9-20) mg/dL Creatinine (0.55-1.30) mg/dl Estimated GFR ML/MIN Glucose (70-110) MG/DL Calcium (8.5-10.1) mg/dL Total Bilirubin (0.2-1.0) mg/dL AST (15-37) U/L ALT (12-78) U/L Alkaline Phosphatase (46-116) U/L Serum Total Protein (6.4-8.2) gm/dL Albumin (3.4-5.0) g/dL Amylase (25-115) U/L Lipase (73-393) U/L Ur Collection Type Urine Color (YELLOW) Urine Appearance (CLEAR) Urine pH (5-6) Ur Specific [place] (1.005-1.025) Urine Protein (Negative) Urine Ketones (NEGATIVE) Urine Blood (0-5) Nicholas/ul Urine Nitrite (NEGATIVE) Urine Bilirubin (NEGATIVE) Urine Urobilinogen (0-1) mg/dL Ur Leukocyte Esterase (NEGATIVE) Urine Microscopic RBC (0-2) /HPF Urine Microscopic WBC (0-5) /HPF Ur Epithelial Cells (FEW) /HPF Urine Bacteria (NEGATIVE) /HPF Urine Glucose (NEGATIVE) mg/dL Specimen Received - Progress Progress Note: 05/31/17 08:57 PATIENT GIVEN IV NORMAL SALINE 250ML/HR, ZOFRAN 4MG/ MORPHINE 4MG IV Discussed with : Other (DISCUSSED WITH DR MARSHALL AT 1130 ACCEPTS TRANSFER TO [facility]IA [facility]) - Departure Time of Disposition: 11:40 Departure Disposition: Transfer Clinical Impression: LEFT URETERAL CALCULI WITH OBSTRUCTION Condition: Stable Critical Care Time: No Referrals: JENI WEN [Primary Care Provider] -
[2017-05-31] MEDS ORDERED: MORPHINE SULFATE 2 MG INJ IV ONE (08:58)
[2017-05-31 09:00] LABS: White Blood Count 36.1 K/mm3 (4.0-10.5)
[2017-05-31 09:01] LABS: ALBUMIN 3.5 g/dL (3.4-5.0); ANION GAP 12.3 MEQ/L (5-15); BILIRUBIN,TOTAL 0.6 mg/dL (0.2-1.0); Carbon Dioxide 26.1 mEq/L (21-32); Potassium 4.3 mEq/L (3.5-5.1); Total Protein 7.5 gm/dL (6.4-8.2)
[2017-05-31] MEDS ORDERED: MORPHINE SULFATE 4 MG INJ ONE (09:05)
[2017-05-31 09:42] LABS: Eosinophil 1 % (0.00-3.0); Platelet Estimate DECREASED (NORMAL); Total Cells Counted 100
--- NOTE | 2017-05-31 10:26 | XRAY ---
Indication: Cough. Comparison: May 15, 2017. Portable chest underinflated today again demonstrating diffuse bilateral fibrosis/scarring greatest in the left base. Heart is not enlarged. No new cardiopulmonary abnormalities.
--- NOTE | 2017-05-31 10:42 | XRAY ---
Indication: Left lower quadrant pain. Constipation. Multiple contiguous axial images obtained through the abdomen and pelvis without contrast as ordered. Comparison: February 17, 2016. Lung bases again demonstrates extensive chronic fibrosis/scarring with mild bronchiectasis. No consolidation or effusion. Heart is not enlarged with now small pericardial effusion/thickening. New 6 mm left mid ureter calculus at the level of the pelvic inlet and 10 mm calculus at the L3-L4 interspace level. The more proximal left ureter is now distended up to 14 mm and there is moderate hydronephrosis with perinephric fluid/stranding consistent with high-grade obstructive uropathy. There are also 2 new 5 mm urinary bladder calculi posteriorly on the right. Stable bilateral urinary bladder diverticuli, enlarged prostate gland, tiny bilateral nephrocalcinosis, and small bilateral renal cysts. Again scattered hepatic/splenic calcified granulomas. Spleen remains enlarged today measuring 15.5 cm in greatest axial dimension, previously 14.4 cm. Remaining liver, gallbladder, pancreas, spleen, adrenal glands, kidneys, ureters, and bladder appear unremarkable for noncontrast exam. Noncontrasted stomach and bowel loops appear nonobstructed. Again there is mild/moderate diffuse scattered colonic fecal debris throughout. Stable scattered sigmoid diverticulosis. No free fluid/air. New aortobiiliac stent graft. Maximum diameter of the abdominal aorta is 3.7 cm, previously 4.9 cm. Stable fatty inguinal hernias again right greater than left. Osseous structures intact again with multilevel degenerative spondylosis and minimal grade 1 L4 anterolisthesis. Impression: 1. There are 2 new calculi in the left ureter producing high-grade obstruction as detailed. Also new tiny urinary bladder calculi. Stable bilateral nephrocalcinosis, bilateral cysts, and urinary bladder diverticuli. 2. Continued diffuse fecal stasis without obstruction. Stable sigmoid diverticulosis. 3. New aortobiiliac stent graft without complications. 4. Again splenomegaly, enlarged prostate gland, bilateral fatty inguinal hernias, and evidence for old granulomatous disease. CT DI 18.11
[2017-05-31 11:43] VITALS: BP 120/56; PULSE 76
[2017-05-31 11:45] LABS: ADD URINE CULTURE? YES (NO); Bilirubin NEGATIVE (NEGATIVE); Blood 250 Ery/ul (0-5); Collection Type VOID; Glucose NEGATIVE (NEGATIVE); Leukocyte Esterase TRACE (NEGATIVE)
[2017-05-31 11:46] LABS: COMPLETE URINE MICROSCOPIC? YES
[2017-05-31 11:53] LABS: Bacteria FEW /HPF (NEGATIVE); Epithelial Cells FEW /HPF (FEW)
== END 2017-05-31 12:25 | disposition short-term general hospital (02) ==
LOC: ED 08:18
DX: N20.1 Calculus of ureter (principal); R10.32 Left lower quadrant pain; R11.0 Nausea
CPT/HCPCS: 36000; 36415; 71010; 74176; 80053; 81000; 82150; 83690; 85025; 85610; 87040; 87086; 96360; 96361; 96374; 96375; 99285; J2270; J2405